=== PATIENT | male | born 1995 | race Caucasian/White ===

== ENCOUNTER 2019-06-13 17:14 | Emergency (ER) | payer OTHER ==
[~2019-06-13] VITALS: Ht 188 cm; Wt 80.3 kg
[2019-06-13 19:19] LABS: INFLUENZA A AMPLIFICATION NEGATIVE (NEGATIVE); INFLUENZA B AMPLIFICATION NEGATIVE (NEGATIVE)
[2019-06-13] MEDS ORDERED: CETI10TA4 PO (21:18)
[2019-06-13 21:26] VITALS: BP 142/92
--- NOTE | 2019-06-14 05:31 | REP ---
Clinical: Cough and shortness of breath . Comparison: None . Technique: PA and lateral. Findings: The mediastinum and cardiac silhouette are normal. The lung walters are clear and without acute consolidation, effusion, or pneumothorax. The skeletal structures are intact and normal. Impression: 1. No acute cardiopulmonary process. Electronically Signed by Cheng Villegas MD 06/14/2019 05:22 A
== END 2019-06-13 21:29 | disposition home or self-care (01) ==
LOC: M ED 17:14
DX: R05 Cough (principal); Z79.899 Other long term (current) drug therapy